=== PATIENT | male | born 1990 | race Caucasian/White ===

== ENCOUNTER 2018-11-06 21:47 | Emergency (ER) | payer BC, OTHER ==
[2018-11-06 22:20] VITALS: RESP 16; TEMP 98.4
--- NOTE | 2018-11-06 23:52 | ED ---
Psych HPI - General Chief Complaint: Psychiatric Symptoms Stated Complaint: Depression Time Seen by Provider: 11/06/18 22:39 Source: patient Mode of arrival: ambulatory - History of Present Illness Initial Comments: Patient is a 28-year-old male who presents to the emergency department today for evaluation of depression. Reports he has a history of depression, he was evaluated approximately a year or urinary half ago and prescribed medications however he did not like the way they made him feel and he has not been compliant with them. Jaguar reports that over the past 2-3 weeks he has just felt overwhelmingly depressed, he's had no motivation to get out of bed, he hasn 't been getting out of bed he hasn't been tending to his activities of daily living including bathing, he hasn't been working he hasn't been spending time with family. Mother bedside states the patient didn't even attend family Berk[place]. Mother bedside is tearful and states she just needs to get him help. - Related Data Home Medications Medication Instructions Recorded Confirmed No Known Home Medications 11/06/18 11/06/18 Allergies Allergy/AdvReac Type Severity Reaction Status Date / Time No Known Allergies Allergy Verified 11/06/18 23:08 Review of Systems ROS Statement: Those systems with pertinent positive or pertinent negative responses have been documented in the HPI. ROS Other: All systems not noted in ROS Statement are negative. Past Medical History Past Medical History: No Reported History History of Any Multi-Drug Resistant Organisms: None Reported Past Surgical History: No Surgical Hx Reported Past Psychological History: Depression Smoking Status: Current every day smoker Past Alcohol Use History: Occasional Past Drug Use History: Marijuana General Exam - General Exam Comments Initial Comments: Physical Exam GENERAL: Unkempt appearance, strong body odor consistent with history of not showering. HENT: Normocephalic, Atraumatic. EYES: PERRL, EOMI PULMONARY: Unlabored respirations. No audible rales rhonchi or wheezing was noted. CARDIOVASCULAR: There is a regular rate and rhythm without any murmurs gallops or rubs. ABDOMEN: Soft and nontender with normal bowel sounds. SKIN: Skin is clear with no lesions or rashes and otherwise unremarkable. : Deferred NEUROLOGIC: Patient is alert and oriented x3. Moving all extremities spontaneously MUSCULOSKELETAL: Normal extremities with adequate strength and full range of motion. No lower extremity swelling or edema. No calf tenderness. PSYCHIATRIC: Flat affect, depressed, passively suicidal Limitations: no limitations Limitations: no limitations Course Vital Signs 11/06/18 11/07/18 22:15 04:58 Temperature 98.4 F Pulse Rate 62 63 Respiratory 16 16 Rate Blood Pressure 120/68 124/66 O2 Sat by Pulse 99 100 Oximetry Medical Decision Making - Medical Decision Making The patient was seen and evaluated history is obtained from the patient and mother This patient appears to be severely depressed he has a very flat affect he's passively suicidal feels helpless and hopeless he's not attending to his activities of daily living, he's not showering Patient will be evaluated by EPS EPS recommends the patient be admitted inpatient. They request that labs be drawn as the patient may need to be transferred to an outside facility No significant abnormalities Patient medically cleared for transfer to psychiatric facility Cert completed - Lab Data Result diagrams: 11/07/18 01:56 11/07/18 01:56 Lab Results 11/07/18 11/07/18 11/07/18 Range/Units 01:48 01:56 01:56 WBC 8.5 (3.8-10.6) k/uL RBC 5.23 (4.30-5.90) m/uL Hgb 15.7 (13.0-17.5) gm/dL Hct 47.2 (39.0-53.0) % MCV 90.3 (80.0-100.0) fL MCH 30.1 (25.0-35.0) pg MCHC 33.3 (31.0-37.0) g/dL RDW 12.7 (11.5-15.5) % Plt Count 177 (150-450) k/uL Neutrophils % 59 % Lymphocytes % 31 % Monocytes % 5 % Eosinophils % 3 % Basophils % 1 % Neutrophils # 5.0 (1.3-7.7) k/uL Lymphocytes # 2.7 (1.0-4.8) k/uL Monocytes # 0.4 (0-1.0) k/uL Eosinophils # 0.2 (0-0.7) k/uL Basophils # 0.1 (0-0.2) k/uL Sodium 141 (137-145) mmol/L Potassium 4.1 (3.5-5.1) mmol/L Chloride 101 (98-107) mmol/L Carbon Dioxide 30 (22-30) mmol/L Anion Gap 10 mmol/L BUN 17 (9-20) mg/dL Creatinine 0.78 (0.66-1.25) mg/dL Est GFR (CKD-EPI)AfAm >90 (>60 ml/min/1.73 sqM) Est GFR (CKD-EPI)NonAf >90 (>60 ml/min/1.73 sqM) Glucose 120 H (74-99) mg/dL Calcium 10.0 (8.4-10.2) mg/dL Total Bilirubin 0.6 (0.2-1.3) mg/dL AST 30 (17-59) U/L ALT 34 (21-72) U/L Alkaline Phosphatase 69 (38-126) U/L Total Protein 7.6 (6.3-8.2) g/dL Albumin 4.9 (3.5-5.0) g/dL Urine Opiates Screen Not Detected (NotDetected) Ur Oxycodone Screen Not Detected (NotDetected) Urine Methadone Screen Not Detected (NotDetected) Ur Propoxyphene Screen Not Detected (NotDetected) Ur Barbiturates Screen Not Detected (NotDetected) U Tricyclic Antidepress Not Detected (NotDetected) Ur Phencyclidine Scrn Not Detected (NotDetected) Ur Amphetamines Screen Not Detected (NotDetected) U Methamphetamines Scrn Not Detected (NotDetected) U Benzodiazepines Scrn Not Detected (NotDetected) Urine Cocaine Screen Not Detected (NotDetected) U Marijuana (THC) Screen Detected H (NotDetected) Disposition Clinical Impression: Depression Disposition: TRANSFER TO PSYCH HOSP/UNIT Is patient prescribed a controlled substance at d/c from ED?: No Referrals: None,Stated [Primary Care Provider] - 1-2 days
[2018-11-07] MEDS ORDERED: NICOTINE 14MG/24HR PATCH TRANSDERM STA (01:38)
[2018-11-07] MEDS ORDERED: NICOTINE POLACRILEX 2 MG GUM BUCCAL PRN (01:38)
[2018-11-07 02:08] LABS: Basophils # (A) 0.1 k/uL (0-0.2); Basophils % (A) 1 %; Eosinophils # (A) 0.2 k/uL (0-0.7); Eosinophils % (A) 3 %; HCT 47.2 % (39.0-53.0); HGB 15.7 gm/dL (13.0-17.5); Lymphocytes # (A) 2.7 k/uL (1.0-4.8); Lymphocytes % (A) 31 %; MCH 30.1 pg (25.0-35.0); MCHC 33.3 g/dL (31.0-37.0); MCV 90.3 fL (80.0-100.0); Mean Platelet Volume 7.5; Monocytes # (A) 0.4 k/uL (0-1.0); Monocytes % (A) 5 %; Neutrophils % (A) 59 %; Platelet Count 177 k/uL (150-450); RBC 5.23 m/uL (4.30-5.90); RDW 12.7 % (11.5-15.5); WBC 8.5 k/uL (3.8-10.6)
[2018-11-07 02:17] LABS: Amphetamine Screen,Urine Not Detected (NotDetected); Barbiturate Screen,Urine Not Detected (NotDetected); Benzodiazepines Screen,Urine Not Detected (NotDetected); Cocaine Screen,Urine Not Detected (NotDetected); Methadone Screen, Urine Not Detected (NotDetected); Opiate Screen,Urine Not Detected (NotDetected); Oxycodone Screen, Urine Not Detected (NotDetected); Phencyclidine Screen,Urine Not Detected (NotDetected); Tricyclic Antidepressant,Urine Not Detected (NotDetected); Urn Cannabinoid Scrn Detected (NotDetected)
[2018-11-07 02:25] LABS: ALT 34 U/L (21-72); AST 30 U/L (17-59); Albumin 4.9 g/dL (3.5-5.0); Alkaline Phosphatase 69 U/L (38-126); Anion Gap 10 mmol/L; Blood Urea Nitrogen 17 mg/dL (9-20); Carbon Dioxide 30 mmol/L (22-30); Chloride 101 mmol/L (98-107); Glucose 120 mg/dL (74-99); Potassium 4.1 mmol/L (3.5-5.1); Sodium 141 mmol/L (137-145); Total Bilirubin 0.6 mg/dL (0.2-1.3); Total Protein 7.6 g/dL (6.3-8.2)
[2018-11-07 05:04] VITALS: BP 124/66; PULSE 63
== END 2018-11-07 05:54 ==
LOC: EC 21:47
DX: F32.9 Major depressive disorder, single episode, unspecified (principal); F17.200 Nicotine dependence, unspecified, uncomplicated; Z91.19 Patient's noncompliance with other medical treatment and regimen
CPT/HCPCS: 82075; 36415; 80053; 85025; 80306; 99284; S4990

== ENCOUNTER 2021-03-13 13:38 | Emergency (ER) | payer OTHER ==
[2021-03-13 13:42] VITALS: TEMP 97.7
[2021-03-13 14:25] LABS: Basophils % (A) 1 %; Eosinophils # (A) 0.2 k/uL (0-0.7); Eosinophils % (A) 3 %; HCT 41.5 % (39.0-53.0); HGB 14.5 gm/dL (13.0-17.5); Lymphocytes # (A) 1.5 k/uL (1.0-4.8); Lymphocytes % (A) 31 %; MCH 31.7 pg (25.0-35.0); MCV 90.5 fL (80.0-100.0); Mean Platelet Volume 7.5; Monocytes # (A) 0.4 k/uL (0-1.0); Monocytes % (A) 9 %; Neutrophils # (A) 2.6 k/uL (1.3-7.7); Neutrophils % (A) 55 %; Platelet Count 215 k/uL (150-450); RBC 4.59 m/uL (4.30-5.90); RDW 12.4 % (11.5-15.5); WBC 4.8 k/uL (3.8-10.6)
--- NOTE | 2021-03-13 14:37 | CT ---
EXAMINATION TYPE: CT cervical spine wo con DATE OF EXAM: 03/13/2021 COMPARISON: None HISTORY: Right arm numbness and tingling in fingers. CT DLP: 302.2 mGycm Automated exposure control for dose reduction was used. TECHNIQUE: CT scan of the cervical spine is obtained without contrast, axial images are obtained, sa gittal and coronal reformatted images are also reviewed. FINDINGS: Cervical spine is visualized in its entirety from C1 through upper thoracic levels, demonst rates satisfactory alignment without evidence of acute fracture or dislocation. Prevertebral soft ti ssue appears within normal limits. The C1-C2 articulation is within normal limits on the coronal magda ges. The disc spaces are well-maintained in height. The bony cervical canal and bony neuroforamina a re widely patent. IMPRESSION: There is no acute fracture or dislocation evident in the cervical spine. No significant c ompromise of the bony neural foramina or bony cervical canal. Small disc herniations cannot be exclud ed with this technique.
[2021-03-13 14:40] LABS: ALT 17 U/L (4-49); AST 36 U/L (17-59); African American GFR (CKD) >90 (>60 ml/min/1.73 sqM); Albumin 4.5 g/dL (3.5-5.0); Alkaline Phosphatase 74 U/L (38-126); Anion Gap 6 mmol/L; Blood Urea Nitrogen 16 mg/dL (9-20); Calcium 9.6 mg/dL (8.4-10.2); Carbon Dioxide 25 mmol/L (22-30); Chloride 107 mmol/L (98-107); Glucose 118 mg/dL (74-99); Non-African American GFR(CKD) >90 (>60 ml/min/1.73 sqM); Potassium 4.2 mmol/L (3.5-5.1); Sodium 138 mmol/L (137-145); Total Bilirubin 0.6 mg/dL (0.2-1.3)
--- NOTE | 2021-03-13 14:43 | ED ---
Extremity Problem HPI - General Chief complaint: Extremity Problem,Nontraumatic Stated complaint: Arm numbness Time Seen by Provider: 03/13/21 13:52 Source: patient Mode of arrival: ambulatory Limitations: no limitations - History of Present Illness Initial comments: Is a 31-year-old male with history depression who presents emergency department for bilateral finger numbness, tingling, and arm pain. The patient states is been going on for the last 2 weeks. He states it's worse at nighttime. He describes a decreased sensation to the third and fourth digits on the palmar aspect that seems to radiate the ventral aspect of the forearm to the elbow. He states that he then did describes some pain going up the arm to the shoulder. He occasionally gets some pain in the right trapezius and right neck as well. He states he also gets symptoms on the left at times however states it does not seem to happen throughout the day and only seems to be happening at night. He states his symptoms do seem to get worse at night. Patient denies any weakness in the arm. Denies any trauma to the neck or severe neck pain. No headaches. Denies any lower extremity symptoms at all. No loss of bowel or bladder and function. He denies any abdominal pain or chest pain. No trouble breathing. He states that he has no other acute complaints. - Related Data Previous Rx's Medication Instructions Recorded predniSONE 50 mg PO DAILY #5 tab 03/13/21 Allergies Allergy/AdvReac Type Severity Reaction Status Date / Time No Known Allergies Allergy Verified 03/13/21 14:33 Review of Systems ROS Statement: Those systems with pertinent positive or pertinent negative responses have been documented in the HPI. ROS Other: All systems not noted in ROS Statement are negative. Past Medical History Past Medical History: No Reported History History of Any Multi-Drug Resistant Organisms: None Reported Past Surgical History: No Surgical Hx Reported Past Psychological History: Depression Smoking Status: Current every day smoker Past Alcohol Use History: Occasional Past Drug Use History: Marijuana General Exam - General Exam Comments Initial Comments: Constitutional: Awake alert Appears comfortable Head: Normocephalic atraumatic Eyes: no conjunctival injection No scleral icterus EOMI Neck: No JVD Supple Heart: Regular rate rhythm normal S1-S2 no murmurs Lungs: Clear to auscultation bilaterally No wheezing No rales Abdomen: Soft nondistended nontender Extremities: Non edematous DP pulses intact Radial pulses intact the patient reports decreased sensation to the lateral aspect of the fourth finger on the palmar aspect and then the entire right third finger. He still able to feel however states that it feels somewhat tingly and decreased and this seems to continue up this central aspect of his right palm and into the central aspect of his right forearm up to the elbow. The patient has 5 out of 5 strength with shoulder abduction, elbow flexion and extension, wrist extension, finger abduction, Tums up and okay testing were normal, 2 out of 4 biceps reflexes bilaterally Neuro: A&Ox3 No focal neurologic deficits Psych: Appropriate mood and affect Limitations: no limitations Course Vital Signs 03/13/21 03/13/21 13:39 15:12 Temperature 97.7 F Pulse Rate 74 18 L Respiratory 17 18 Rate Blood Pressure 127/66 120/79 O2 Sat by Pulse 100 99 Oximetry Medical Decision Making - Medical Decision Making This is a 31-year-old male who presents here department for tingling and pain in the right extremity. The patient had blood work and a CT of the cervical spine for evaluation of any nerve impingement. The patient had no weakness or niece signs of central cord compression on examination however. Computed tomography scan did not show any evidence for severe foraminal stenosis. No other acute abnormalities. The patient had full strength on exam and only minimal symptoms. I advised him that he needs further workup for possible MRI or EMG's. He is given a follow-up with the primary doctor I provided for him. I'm going to start him on steroids in case this is some mild nerve impingement. Told him to follow-up closely with his primary doctor or return emergency Department if he develops any worsening symptoms such as weakness, worsening since sensory changes or any other complaints. - Lab Data Result diagrams: 03/13/21 14:06 03/13/21 14:06 Lab Results 03/13/21 03/13/21 Range/Units 14:06 14:06 WBC 4.8 (3.8-10.6) k/uL RBC 4.59 (4.30-5.90) m/uL Hgb 14.5 (13.0-17.5) gm/dL Hct 41.5 (39.0-53.0) % MCV 90.5 (80.0-100.0) fL MCH 31.7 (25.0-35.0) pg MCHC 35.0 (31.0-37.0) g/dL RDW 12.4 (11.5-15.5) % Plt Count 215 (150-450) k/uL MPV 7.5 Neutrophils % 55 % Lymphocytes % 31 % Monocytes % 9 % Eosinophils % 3 % Basophils % 1 % Neutrophils # 2.6 (1.3-7.7) k/uL Lymphocytes # 1.5 (1.0-4.8) k/uL Monocytes # 0.4 (0-1.0) k/uL Eosinophils # 0.2 (0-0.7) k/uL Basophils # 0.0 (0-0.2) k/uL Sodium 138 (137-145) mmol/L Potassium 4.2 (3.5-5.1) mmol/L Chloride 107 (98-107) mmol/L Carbon Dioxide 25 (22-30) mmol/L Anion Gap 6 mmol/L BUN 16 (9-20) mg/dL Creatinine 0.69 (0.66-1.25) mg/dL Est GFR (CKD-EPI)AfAm >90 (>60 ml/min/1.73 sqM) Est GFR (CKD-EPI)NonAf >90 (>60 ml/min/1.73 sqM) Glucose 118 H (74-99) mg/dL Calcium 9.6 (8.4-10.2) mg/dL Total Bilirubin 0.6 (0.2-1.3) mg/dL AST 36 (17-59) U/L ALT 17 (4-49) U/L Alkaline Phosphatase 74 (38-126) U/L Total Protein 7.0 (6.3-8.2) g/dL Albumin 4.5 (3.5-5.0) g/dL Disposition Clinical Impression: Radiculopathy Disposition: HOME SELF-CARE Condition: Stable Instructions (If sedation given, give patient instructions): Cervical Radic ulopathy (ED) Prescriptions: predniSONE 50 mg PO DAILY #5 tab Is patient prescribed a controlled substance at d/c from ED?: No Referrals: None,Stated [Primary Care Provider] - 1-2 days Trip Fernandez DO [STAFF PHYSICIAN] - 1-2 days
[2021-03-13 15:13] VITALS: BP 120/79; PULSE 18; RESP 18
== END 2021-03-13 15:12 | disposition home or self-care (01) ==
LOC: EC 13:38
DX: M54.10 Radiculopathy, site unspecified (principal); F17.200 Nicotine dependence, unspecified, uncomplicated; F12.90 Cannabis use, unspecified, uncomplicated; F32.9 Major depressive disorder, single episode, unspecified
CPT/HCPCS: 36415; 72125; 80053; 85025; 99283

== ENCOUNTER 2023-11-13 02:39 | Emergency (ER) | payer OTHER ==
[2023-11-13 03:03] VITALS: TEMP 97.6
[2023-11-13] MEDS ORDERED: SODIUM CHLORIDE 0.9% 1,000 ML IV ONE (03:26)
[2023-11-13] MEDS ORDERED: ONDANSETRON 4 MG/2 ML VIAL IVP STA (03:26)
[2023-11-13 04:03] LABS: Basophils # (A) 0.1 k/uL (0-0.2); Basophils % (A) 1 %; Eosinophils # (A) 0.1 k/uL (0-0.7); Eosinophils % (A) 1 %; HCT 45.4 % (39.0-53.0); HGB 15.4 gm/dL (13.0-17.5); Lymphocytes # (A) 2.1 k/uL (1.0-4.8); Lymphocytes % (A) 17 %; MCH 30.2 pg (25.0-35.0); MCHC 33.8 g/dL (31.0-37.0); MCV 89.3 fL (80.0-100.0); Mean Platelet Volume 8.8; Monocytes # (A) 0.6 k/uL (0-1.0); Monocytes % (A) 5 %; Neutrophils # (A) 9.3 k/uL (1.3-7.7); Neutrophils % (A) 76 %; Platelet Count 224 k/uL (150-450); RBC 5.09 m/uL (4.30-5.90); RDW 11.9 % (11.5-15.5); WBC 12.3 k/uL (3.8-10.6)
[2023-11-13 04:20] LABS: ALT 15 U/L (4-49); AST 25 U/L (17-59); African American GFR (CKD) >90 (>60 ml/min/1.73 sqM); Albumin 4.8 g/dL (3.5-5.0); Alkaline Phosphatase 102 U/L (38-126); Amylase 62 U/L (30-110); Anion Gap 13 mmol/L; Blood Urea Nitrogen 19 mg/dL (9-20); Calcium 9.6 mg/dL (8.4-10.2); Carbon Dioxide 24 mmol/L (22-30); Chloride 101 mmol/L (98-107); Glucose 140 mg/dL (74-99); Lipase 46 U/L (23-300); Magnesium 1.9 mg/dL (1.6-2.3); Non-African American GFR(CKD) >90 (>60 ml/min/1.73 sqM); Potassium 3.5 mmol/L (3.5-5.1); Sodium 138 mmol/L (137-145); Total Bilirubin 0.5 mg/dL (0.2-1.3); Total Protein 7.5 g/dL (6.3-8.2)
[2023-11-13 04:35] LABS: Partial Thromboplastin Time 24.8 sec (22.0-30.0)
--- NOTE | 2023-11-13 05:18 | XR ---
EXAM: XR Chest, 2 Views CLINICAL HISTORY: Chest Pain TECHNIQUE: Frontal and lateral views of the chest. COMPARISON: No relevant prior studies available. FINDINGS: Lungs: Unremarkable. No consolidation. Pleural space: Unremarkable. Mediastinum: Unremarkable. Normal mediastinal contour. Bones/joints: No acute findings. IMPRESSION: No acute findings.
--- NOTE | 2023-11-13 05:31 | ED ---
Chest Pain HPI - General Chief Complaint: Chest Pain Stated Complaint: Heart Palpitations, Chest Pain, Nausea Time Seen by Provider: 11/13/23 03:15 Source: patient Mode of arrival: wheelchair Limitations: no limitations - History of Present Illness MD Complaint: chest pain Onset/Timin -: hour(s) Onset: during rest Pain Location: substernal Pain Radiation: none Severity: moderate Quality: sharp Consistency: constant Improves With: nothing Anginal Symptoms: nausea, vomiting Treatments Prior to Arrival: none - Related Data Previous Rx's Medication Instructions Recorded predniSONE 50 mg PO DAILY #5 tab 03/13/21 Allergies Allergy/AdvReac Type Severity Reaction Status Date / Time No Known Allergies Allergy Verified 11/13/23 02:43 Review of Systems ROS Statement: Those systems with pertinent positive or pertinent negative responses have been documented in the HPI. ROS Other: All systems not noted in ROS Statement are negative. Constitutional: Denies: fever, chills Respiratory: Denies: cough, dyspnea Cardiovascular: Reports: chest pain. Denies: palpitations, orthopnea, edema Gastrointestinal: Denies: abdominal pain, nausea, vomiting, diarrhea, constipation Genitourinary: Denies: dysuria, hematuria Musculoskeletal: Denies: back pain Skin: Denies: rash Neurological: Denies: headache, weakness EKG Findings - EKG Results: EKG: interpreted by SHAHEED, sinus rhythm (Rate 85 bpm), normal axis, normal ST/T - Blocks, [place], Hypertrophy, ST Abn: AV and intraventricular conduction: right bundle branch block (fixed/intermittent, complete/incomplete) Past Medical History Past Medical History: No Reported History History of Any Multi-Drug Resistant Organisms: None Reported Past Surgical History: No Surgical Hx Reported Past Psychological History: Depression Smoking Status: Current every day smoker Past Alcohol Use History: Occasional Past Drug Use History: Marijuana General Exam Limitations: no limitations General appearance: alert, in no apparent distress Head exam: Present: atraumatic, normocephalic Eye exam: Present: normal appearance. Absent: scleral icterus, conjunctival injection Neck exam: Present: normal inspection Respiratory exam: Present: normal lung sounds bilaterally. Absent: respiratory distress, wheezes, rales, rhonchi, stridor Cardiovascular Exam: Present: regular rate, normal rhythm, normal heart sounds. Absent: systolic murmur, diastolic murmur, rubs, gallop GI/Abdominal exam: Present: soft. Absent: distended, tenderness, guarding, rebound, rigid, mass Extremities exam: Present: normal inspection, normal capillary refill. Absent: pedal edema, calf tenderness Back exam: Present: normal inspection. Absent: CVA tenderness (R), CVA tenderness (L) Neurological exam: Present: alert Skin exam: Present: warm, dry, intact, normal color. Absent: rash Course Vital Signs 11/13/23 11/13/23 11/13/23 02:41 05:43 06:20 Temperature 97.6 F Pulse Rate 107 H 82 66 Respiratory 20 16 16 Rate Blood Pressure 135/67 114/76 113/68 O2 Sat by Pulse 96 98 98 Oximetry Chest Pain MDM - MDM The patient had chest x-ray which I interpreted as negative for acute infiltrate, pneumothorax, congestive heart Was pt. sent in by a medical professional or institution (Dr. PA, FACILITIES MAINTENANCE WORKER, urgent care, hospital, or penitentiary...) When possible be specific @ -[No] Did you speak to anyone other than the patient for history (EMS, parent, family, police, friend...)? What history was obtained from this source @ -[No] Did you review nursing and triage notes (agree or disagree)? Why? @ -[I reviewed and agree with nursing and triage notes] Were old charts reviewed (outside hosp., previous admission, EMS record, old EKG, old radiological studies, urgent care reports/EKG's, penitentiary records)? Report findings @ -[No old charts were reviewed] Differential Diagnosis (chest pain, altered mental status, abdominal pain women, abdominal pain men, vaginal bleeding, weakness, fever, dyspnea, syncope, headache, dizziness, GI bleed, back pain, seizure, CVA, palpatations, mental health, musculoskeletal)? @ -[Differential Chest Pain: Stable Angina, Unstable Angina, STEMI, NSTEMI Aortic Dissection, Pneumothorax, Musculoskeletal, Esophageal Spasm GERD, Cholecystitis, Pancreatitis, Zoster, this is not meant to be an all-inclusive list. EKG interpreted by me (3pts min.). @ -[I interpreted As above] X-rays interpreted by me (1pt min.). @ -[I interpreted as above CT interpreted by me (1pt min.). @ -[None done] U/S interpreted by me (1pt. min.). @ -[None done] What testing was considered but not performed or refused? (CT, X-rays, U/S, labs)? Why? @ -[None] What meds were considered but not given or refused? Why? @ -[None] Did you discuss the management of the patient with other professionals (professionals i.e. , PA, FACILITIES MAINTENANCE WORKER, lab, RT, psych nurse, high school social studies tutor, cook fish eggs, teacher, safety officer, catalytic case operator)? Give summary @ -[No] Was smoking cessation discussed for >3mins.? @ -[No] Was critical care preformed (if so, how long)? @ -[No] Were there social determinants of health that impacted care today? How? (Homelessness, low income, unemployed, alcoholism, drug addiction, transportation, low edu. Level, literacy, decrease access to med. care, usp, rehab)? @ -[No] Was there de-escalation of care discussed even if they declined (Discuss DNR or withdrawal of care, Hospice)? DNR status @ -[No] What co-morbidities impacted this encounter? (DM, HTN, Smoking, COPD, CAD, Cancer, CVA, ARF, Chemo, Hep., AIDS, mental health diagnosis, sleep apnea, morbid obesity)? @ -[None] Was patient admitted / discharged? Hospital course, mention meds given and route, prescriptions, significant lab abnormalities, going to OR and other pertinent info. @ -[Patient is 33-year-old man with chest pain. His initial evaluation is negative. The patient at this point stable for further evaluation as outpatient. We discussed appropriate further care and follow-up as well as return parameters. Undiagnosed new problem with uncertain prognosis? @ -[No] Drug Therapy requiring intensive monitoring for toxicity (Heparin, Nitro, Insulin, Cardizem)? @ -[No] Were any procedures done? @ -[No] Diagnosis/symptom? @ -[Acute chest pain Acute, or Chronic, or Acute on Chronic? @ -[default] Uncomplicated (without systemic symptoms) or Complicated (systemic symptoms)? @ -[Uncomplicated Side effects of treatment? @ -[No] Exacerbation, Progression, or Severe Exacerbation? @ -[No] Poses a threat to life or bodily function? How? (Chest pain, [place], [place], pneumonia, PE, COPD, DKA, ARF, appy, cholecystitis, CVA, Diverticulitis, Homicidal, Suicidal, threat to staff... and all critical care pts) @ -[Low likelihood but does require further evaluation Disposition Clinical Impression: Chest pain Disposition: HOME SELF-CARE Condition: Good Instructions (If sedation given, give patient instructions): Chest Pain (ED) Is patient prescribed a controlled substance at d/c from ED?: No Referrals: None,Stated [Primary Care Provider] - 1-2 days
[2023-11-13 06:25] VITALS: BP 113/68; PULSE 66; RESP 16
== END 2023-11-13 07:40 | disposition home or self-care (01) ==
LOC: EC 02:39
DX: I45.10 Unspecified right bundle-branch block (principal); F17.200 Nicotine dependence, unspecified, uncomplicated; F12.90 Cannabis use, unspecified, uncomplicated; Z86.59 Personal history of other mental and behavioral disorders
CPT/HCPCS: 36415; 80053; 82150; 83690; 83735; 84484; 85025; 85610; 85730; 71046; 99285; 96374; 96361; J2405

== ENCOUNTER 2025-01-24 06:54 | Emergency (ER) | payer OTHER ==
[2025-01-24 07:03] VITALS: BP 129/87; PULSE 83; RESP 18; TEMP 97.7
--- NOTE | 2025-01-24 07:27 | ED ---
General Adult HPI - General Chief complaint: Headache Stated complaint: Headache Time Seen by Provider: 01/24/25 07:05 Source: patient, RN notes reviewed Mode of arrival: ambulatory Limitations: no limitations - History of Present Illness Initial comments: Patient is a 35-year-old male present to the emergency department with concern with headache. Onset of symptoms was around 3 weeks ago. Headaches are coming and going. Patient occasionally has some neck discomfort of his upper neck. Rubbing his neck seems to help. Patient also has paresthesias described as it feels hot when his skin touches things at times. Patient at times has photosensitivity. No history of chronic headaches. No confusion or weakness. No fever. - Related Data Previous Rx's Medication Instructions Recorded predniSONE 50 mg PO DAILY #5 tab 03/13/21 Cyclobenzaprine [Flexeril] 10 mg PO TID PRN #12 tablet 01/24/25 Allergies Allergy/AdvReac Type Severity Reaction Status Date / Time No Known Allergies Allergy Verified 01/24/25 07:02 Review of Systems ROS Statement: Those systems with pertinent positive or pertinent negative responses have been documented in the HPI. ROS Other: All systems not noted in ROS Statement are negative. Constitutional: Denies: fever Eyes: Denies: eye pain ENT: Denies: ear pain Respiratory: Denies: dyspnea Cardiovascular: Denies: chest pain Gastrointestinal: Denies: abdominal pain Neurological: Reports: as per HPI, headache, paresthesias. Denies: weakness, confusion Past Medical History Past Medical History: No Reported History History of Any Multi-Drug Resistant Organisms: None Reported Past Surgical History: No Surgical Hx Reported Past Psychological History: Depression Smoking Status: Current every day smoker Past Alcohol Use History: Occasional Past Drug Use History: Marijuana General Exam Limitations: no limitations General appearance: alert, in no apparent distress Head exam: Present: normocephalic Eye exam: Present: normal appearance, PERRL, EOMI ENT exam: Present: normal exam Neck exam: Present: normal inspection. Absent: tenderness, meningismus Respiratory exam: Present: normal lung sounds bilaterally Cardiovascular Exam: Present: regular rate, normal rhythm GI/Abdominal exam: Present: soft. Absent: tenderness Extremities exam: Present: normal inspection. Absent: pedal edema, calf tenderness Neurological exam: Present: alert, oriented X3, CN II-XII intact. Absent: motor sensory deficit Expanded Neurological exam: Present: protecting the airway Speech: Present: fluid speech Cranial nerves: EOM's Intact: Normal, Facial Sensation: Normal Sensory exam: Upper Extremity Light Touch: Normal, Lower Extremity Light Touch: Normal Motor strength exam: RUE: 5, LUE: 5, RLE: 5, LLE: 5 Eye Response: (4) open spontaneously Motor Response: (6) obeys commands Verbal Response: (5) oriented Psychiatric exam: Present: normal affect, normal mood Skin exam: Present: normal color Course Vital Signs 01/24/25 07:00 Temperature 97.7 F Pulse Rate 83 Respiratory 18 Rate Blood Pressure 129/87 O2 Sat by Pulse 97 Oximetry Medical Decision Making - Medical Decision Making Was pt. sent in by a medical professional or institution (, PA, PAINT [employer]OVER[employer]ER, urgent care, hospital, or correction...) When possible be specific @ -No Did you speak to anyone other than the patient for history (EMS, parent, family, police, friend...)? What history was obtained from this source @ -Mother is present helps provide history of patient's symptoms which is similar to his status symptoms Did you review nursing and triage notes (agree or disagree)? Why? @ -I reviewed and agree with nursing and triage notes Were old charts reviewed (outside hosp., previous admission, EMS record, old EKG, old radiological studies, urgent care reports/EKG's, correction records)? Report findings @ -No old charts were reviewed Differential Diagnosis (chest pain, altered mental status, abdominal pain women, abdominal pain men, vaginal bleeding, weakness, fever, dyspnea, syncope, headache, dizziness, GI bleed, back pain, seizure, CVA, palpatations, mental health, musculoskeletal)? @ -Differential Headache: Migraine, tension, cluster, carbon monoxide, central venous thrombosis, pension karma temporal arteritis, acute closure glaucoma, intercranial hemorrhage, mastoiditis, sinusitis, head injury, this is not meant to be an all-inclusive list. EKG interpreted by me (3pts min.). @ -As above X-rays interpreted by me (1pt min.). @ -None done CT interpreted by me (1pt min.). @ -CT scan of the brain interpreted by myself does not reveal acute abnormality U/S interpreted by me (1pt. min.). @ -None done What testing was considered but not performed or refused? (CT, X-rays, U/S, labs)? Why? @ -None What meds were considered but not given or refused? Why? @ -None Did you discuss the management of the patient with other professionals (professionals i.e. , PA, PAINT RO[employer] COVERMAKER, lab, RT, psych nurse, forensic social worker, seconds inspector, teacher, chief sales officer, medical case worker)? Give summary @ -No Was smoking cessation discussed for >3mins.? @ -No Was critical care preformed (if so, how long)? @ -No Were there social determinants of health that impacted care today? How? (Homelessness, low income, unemployed, alcoholism, drug addiction, transportation, low edu. Level, literacy, decrease access to med. care, fci, rehab)? @ -No Was there de-escalation of care discussed even if they declined (Discuss DNR or withdrawal of care, Hospice)? DNR status @ -No What co-morbidities impacted this encounter? (DM, HTN, Smoking, COPD, CAD, Cancer, CVA, ARF, Chemo, Hep., AIDS, mental health diagnosis, sleep apnea, morbid obesity)? @ -None Was patient admitted / discharged? Hospital course, mention meds given and route, prescriptions, significant lab abnormalities, going to OR and other pertinent info. @ -Patient presents with intermittent headaches over the past 3 weeks. Discomfort is near resolved at this time. CT unremarkable. No focal neurological abnormalities. Patient will be discharged with recommended follow- up. Patient will be tried on muscle relaxers. Undiagnosed new problem with uncertain prognosis? @ -No Drug Therapy requiring intensive monitoring for toxicity (Heparin, Nitro, Insulin, Cardizem)? @ -No Were any procedures done? @ -No Diagnosis/symptom? @ -Cephalgia Acute, or Chronic, or Acute on Chronic? @ -Acute Uncomplicated (without systemic symptoms) or Complicated (systemic symptoms)? @ -Default Side effects of treatment? @ -No Exacerbation, Progression, or Severe Exacerbation? @ -No Poses a threat to life or bodily function? How? (Chest pain, [place], [place], pneumonia, PE, COPD, DKA, ARF, appy, cholecystitis, CVA, Diverticulitis, Homicidal, Suicidal, threat to staff... and all critical care pts) @ -No Disposition Clinical Impression: Cephalgia Disposition: HOME SELF-CARE Condition: Stable Instructions (If sedation given, give patient instructions): Acute Headache (ED) Additional Instructions: Prescription sent to pharmacy. Please do follow-up with your primary care physician in the next day or 2 for recheck. Consider referral for ENT or neurology if symptoms continue. Return for weakness, confusion, fever, increased pain, worsening symptoms or other concerns. Prescriptions: Cyclobenzaprine [Flexeril] 10 mg PO TID PRN #12 tablet PRN Reason: Pain Is patient prescribed a controlled substance at d/c from ED?: No Referrals: None,Stated [Primary Care Provider] - 1-2 days Alban Delarosa MD [STAFF PHYSICIAN] - 1-2 days Art Granda MD [STAFF PHYSICIAN] - 1-2 days Denise Mcguire MD [Medical Doctor] - 1-2 days Forms: Area PCPs Time of Disposition: 08:21
--- NOTE | 2025-01-24 07:45 | CT ---
EXAMINATION TYPE: CT brain wo con DATE OF EXAM: 01/24/2025 COMPARISON: NONE CLINICAL INDICATION: Male, 35 years old with history of sandoval, headache, TECHNIQUE: CT scan of the head is performed without contrast. CT DLP: 1147.4 mGycm. Automated Exposure Control for Dose Reduction was Utilized. FINDINGS: There is no acute intracranial hemorrhage, mass effect, or midline shift identified. The ventricles and sulci are within normal limits in size. Melendez-white matter differentiation is maintain ed. The globes are intact and the visualized sinuses are clear. IMPRESSION: No acute intracranial hemorrhage, mass effect, or midline shift is seen. [facility], , 01/24/2025 7:43 AM
== END 2025-01-24 08:33 | disposition home or self-care (01) ==
LOC: EC 06:54
DX: R51.9 Headache, unspecified (principal); F17.200 Nicotine dependence, unspecified, uncomplicated
CPT/HCPCS: 70450; 99284